=== PATIENT | female | born 2000 | race Caucasian/White ===

== ENCOUNTER 2020-11-01 12:15 | Inpatient (IN) | payer OTHER, BC ==
[~2020-11-01 12:15] MED LIST: Iopamidol-370 76% 500 ML 1 ML ONE
[2020-11-01] MEDS ORDERED: Fentanyl 100 MCG/2 ML VIAL ONE ×4 (12:20→17:38)
[2020-11-01 12:41] LABS: #Eosinphils 0.1 thou/uL (0.0-0.7); #Lymphocytes 1.9 thou/uL (1.20-3.40); #Monocytes 0.9 thou/uL (0.11-0.59); #Neutrophils 9.5 thou/uL (1.40-6.50); %Basophils 0.4 % (0.0-1.0); %Eosinophils 0.6 % (0.0-10.0); %Lymphocytes 15.1 % (21.0-51.0); %Monocytes 7.2 % (0.0-10.0); %Neutrophils 76.8 % (42.0-75.0); Hemoglobin 13.4 g/dL (12.0-16.0); Mean Corpuscular HGB CONC 33.6 g/dL (32.0-36.0); Mean Corpuscular Volume 89.2 fL (78.0-98.0); Mean Platelet Volume 7.4 fL (7.4-10.4); Platelet Count 319 thou/uL (130-400); RBC Distribution Width 11.9 % (11.5-14.5); Red Blood Cell (RBC) Count 4.46 mill/uL (4.20-5.40); White Blood Cell (WBC) Count 12.4 thou/uL (4.8-10.8)
[2020-11-01 12:42] LABS: BHCG - Serum Negative (NEGATIVE); Pregs Control Background? CLEAR/WHITE (CLR/WHITE); Pregs Control Bar Appear? YES (CONTROL BAR)
[2020-11-01] MEDS ORDERED: hydrALAZINE 20 MG/ML VIAL SLOW IVP PRN (13:04)
[2020-11-01] MEDS ORDERED: Dextrose 5% in Water 1,000 ML IV PRN (13:04)
[2020-11-01] MEDS ORDERED: Dextrose 50% Abboject 50 ML SYRINGE SLOW IVP PRN (13:04)
[2020-11-01] MEDS ORDERED: Ondansetron ODT 4 MG TAB PO PRN (13:04)
[2020-11-01 13:09] LABS: Chloride 112 mmol/L (98-107); Potassium 3.6 mmol/L (3.5-5.1); Sodium 140 mmol/L (136-145)
[2020-11-01 13:10] LABS: Calcium 9.2 mg/dL (7.8-10.44); Glucose 99 mg/dL (70-105)
[2020-11-01 13:11] LABS: Globulin 2.9 g/dL (2.4-3.5); Protein, Total 6.9 g/dL (6.0-8.3)
[2020-11-01 13:12] LABS: Anion Gap 14 mmol/L (10-20); Bilirubin, Total 0.8 mg/dL (0.2-1.2); Carbon Dioxide 18 mmol/L (22-29)
[2020-11-01 13:13] LABS: Alkaline Phosphatase 80 U/L (40-110)
[2020-11-01 13:14] LABS: Calc. Creatinine Clearance 0 mL/min (70-130)
[2020-11-01 13:15] LABS: BUN (Urea Nitrogen) 17 mg/dL (7.0-18.7)
[2020-11-01 13:16] LABS: ALT (SGPT) 20 U/L (8-55); AST (SGOT) 26 U/L (5-34)
[2020-11-01 15:04] LABS: SARS-CoV-2 NAA Rapid Test Not Detected (NotDetected)
[2020-11-01] MEDS ORDERED: Ketorolac Tromethamine 30 MG/ML VIAL ONE (15:16)
[2020-11-01] MEDS ORDERED: Succinylcholine 200 MG/10 ml SYRINGE FS ONE (16:28)
[2020-11-01] MEDS ORDERED: PROPOFOL 200 MG/20 ML VIAL ONE (16:28)
[2020-11-01] MEDS ORDERED: Lidocaine 1% PF 5 ML VIAL ONE (16:28)
[2020-11-01] MEDS ORDERED: Ondansetron PF 4 MG/2 ML Vial ONE ×2 (16:28→18:07)
[2020-11-01] MEDS ORDERED: Dexamethasone 20 MG/5 ML VIAL ONE (16:28)
[2020-11-01] MEDS ORDERED: Neomycin-Polymyxin 1 ML AMP ONE (16:49)
[2020-11-01] MEDS ORDERED: Clindamycin/D5W 900 mg/50 ml Premix Bag ONE (18:11)
[2020-11-01] MEDS: Sodium Chloride 0.9% 1,000 ML IV SCH (21:07)
[2020-11-01] MEDS: Clindamycin/D5W 900 MG in Premix Bag 1 BAG IVPB SCH (21:07)
[2020-11-01 21:12] VITALS: BMI 29.0
[2020-11-01] MEDS: Morphine 2 MG/ML VIAL SLOW IVP PRN (21:28)
[2020-11-02] MEDS: Morphine 2 MG/ML VIAL SLOW IVP PRN ×2 (00:53→04:26)
[2020-11-02] MEDS: Sodium Chloride 0.9% 1,000 ML IV SCH ×2 (00:53→09:19)
[2020-11-02] MEDS: Clindamycin/D5W 900 MG in Premix Bag 1 BAG IVPB SCH ×3 (01:00→18:26)
[2020-11-02 06:55] LABS: #Lymphocytes 1.1 thou/uL (1.20-3.40); %Basophils 0.1 % (0.0-1.0); %Lymphocytes 6.1 % (21.0-51.0); %Monocytes 5.6 % (0.0-10.0); %Neutrophils 88.1 % (42.0-75.0); Hemoglobin 12.1 g/dL (12.0-16.0); Mean Corpuscular HGB CONC 33.4 g/dL (32.0-36.0); Mean Corpuscular Hemoglobin 30.2 pg (27.0-31.0); Mean Corpuscular Volume 90.2 fL (78.0-98.0); Mean Platelet Volume 7.4 fL (7.4-10.4); Platelet Count 233 thou/uL (130-400); Red Blood Cell (RBC) Count 4.01 mill/uL (4.20-5.40); White Blood Cell (WBC) Count 18.1 thou/uL (4.8-10.8)
[2020-11-02 07:13] LABS: Anion Gap 12 mmol/L (10-20); BUN (Urea Nitrogen) 15 mg/dL (7.0-18.7); Calc. Creatinine Clearance 126 mL/min (70-130); Calcium 8.9 mg/dL (7.8-10.44); Carbon Dioxide 22 mmol/L (22-29); Chloride 111 mmol/L (98-107); Glucose 115 mg/dL (70-105); Potassium 4.6 mmol/L (3.5-5.1); Sodium 140 mmol/L (136-145)
[2020-11-02] MEDS ORDERED: traMADol HCl 50 MG TAB PO SCH (08:45)
[2020-11-02] MEDS: Senokot S 8.6-50 MG TAB PO SCH ×2 (10:22→21:00)
[2020-11-02] MEDS: Ibuprofen 200 MG TAB PO PRN ×2 (10:22→18:29)
[2020-11-02] MEDS: Acetaminophen 500 MG TAB PO SCH ×3 (10:22→21:00)
[2020-11-02] MEDS: Polyethylene Glycol 3350 17 GM Packet PO SCH (10:22)
[2020-11-02] MEDS: traMADol HCl 50 MG TAB PO PRN (16:48)
[2020-11-02] MEDS ORDERED: Melatonin 3 MG TAB PO SCH (21:15)
[2020-11-03] MEDS: Clindamycin/D5W 900 MG in Premix Bag 1 BAG IVPB SCH (01:40)
[2020-11-03] MEDS: traMADol HCl 50 MG TAB PO PRN ×2 (01:45→09:45)
[2020-11-03] MEDS: Acetaminophen 500 MG TAB PO SCH (04:46)
[2020-11-03 07:27] LABS: #Eosinphils 0.2 thou/uL (0.0-0.7); #Lymphocytes 2.9 thou/uL (1.20-3.40); #Monocytes 1.4 thou/uL (0.11-0.59); #Neutrophils 5.6 thou/uL (1.40-6.50); %Basophils 0.3 % (0.0-1.0); %Eosinophils 1.7 % (0.0-10.0); %Lymphocytes 28.8 % (21.0-51.0); %Monocytes 14.1 % (0.0-10.0); %Neutrophils 55.1 % (42.0-75.0); Hemoglobin 11.3 g/dL (12.0-16.0); Mean Corpuscular HGB CONC 32.7 g/dL (32.0-36.0); Mean Corpuscular Hemoglobin 30.2 pg (27.0-31.0); Mean Corpuscular Volume 92.3 fL (78.0-98.0); Mean Platelet Volume 7.6 fL (7.4-10.4); Platelet Count 166 thou/uL (130-400); Red Blood Cell (RBC) Count 3.76 mill/uL (4.20-5.40); White Blood Cell (WBC) Count 10.2 thou/uL (4.8-10.8)
[2020-11-03 08:14] VITALS: BP 117/77; TEMP 97.9
[2020-11-03] MEDS: Senokot S 8.6-50 MG TAB PO SCH (09:45)
[2020-11-03] MEDS: Polyethylene Glycol 3350 17 GM Packet PO SCH (09:45)
[2020-11-03] MEDS ORDERED: Acetaminophen 500 MG TAB PO SCH (12:00)
== END 2020-11-03 15:47 | disposition home or self-care (01) | DRG 907 ==
LOC: ERS 12:15 → SJJU 13:04
PROVIDERS: ADMIT Surgery; ATTEND Surgery
PROC: 0JQP0ZZ Repair Left Lower Leg Subcutaneous Tissue and Fascia, Open Approach (ICD-10-PCS; principal; 2020-11-01)
PROC: 0JCP0ZZ Extirpation of Matter from Left Lower Leg Subcutaneous Tissue and Fascia, Open Approach (ICD-10-PCS; 2020-11-01)
DX: S81.822A Laceration with foreign body, left lower leg, initial encounter (principal); S36.031A Moderate laceration of spleen, initial encounter; Z20.822 Contact with and (suspected) exposure to COVID-19; S82.65XA Nondisplaced fracture of lateral malleolus of left fibula, initial encounter for closed fracture; S62.647A Nondisplaced fracture of proximal phalanx of left little finger, initial encounter for closed fracture; V23.4XXA Motorcycle driver injured in collision with car, pick-up truck or van in traffic accident, initial encounter; Y92.410 Unspecified street and highway as the place of occurrence of the external cause
CPT/HCPCS: 36415; 70450; 71045; 71260; 72125; 74177; 80048; 80053; 84703; 85025; 86850; 86900; 86901; 96365; 96366; 96375; G0390; J1100; J1885; J1956; J2270; J2405; J2704; J3010; J3490; J7050; Q9967; U0002